=== PATIENT | female | born 1975 | race Caucasian/White ===

== ENCOUNTER 2020-09-12 18:19 | Emergency (ER) | payer OTHER ==
[~2020-09-12 18:19] MED LIST: ABILIFY5 MG PO; AMLODIPINE BESYL5 MG PO; AZITHROMYCIN250 MG PO; BACTRIM DS TAB1 EACH PO; CLARITIN10 MG PO; CYCLOBENZAPRINE10 MG PO; DICLOFENAC SODI75 MG PO; IBUPROFEN800 MG PO; LASIX40 MG PO; LISINOPRIL-HCT1 EAC2 PO; NORCO 5-325 TA1 EACH PO; PEPCID AC20 MG PO; PERCOCET 5-3251 EACH PO; POTASSIUM CHLO20 ME2 PO; PREDNISONE5 MG PO; PRILOSEC20 MG PO; PRINIVIL20 MG PO; TOPROL XL 50 MG50 MG PO; ZANTAC150 MG PO; ZOLOFT50 MG PO
[2020-09-12] MEDS ORDERED: NAPROSYN375 MG PO (21:31)
== END 2020-09-12 21:50 | disposition home or self-care (01) ==
LOC: FER 18:19
DX: S83.92XA Sprain of unspecified site of left knee, initial encounter (principal); S83.91XA Sprain of unspecified site of right knee, initial encounter; F17.210 Nicotine dependence, cigarettes, uncomplicated; W17.1XXA Fall into storm drain or manhole, initial encounter; Y92.007 Garden or yard of unspecified non-institutional (private) residence as the place of occurrence of the external cause
CPT/HCPCS: 72100; 73564; J1885